=== PATIENT | female | born 1995 | race Caucasian/White ===

== ENCOUNTER 2023-06-23 21:44 | Emergency (ER) | payer MEDICAID ==
[~2023-06-23] VITALS: Ht 152.4 cm; Wt 59.0 kg
[2023-06-23 22:39] VITALS: O2SAT 98
[2023-06-24] MEDS ORDERED: IBUP-2029 MT (00:59)
[2023-06-24 02:35] VITALS: BP 118/72; PULSE 86; RESP 14; TEMP 98.2
== END 2023-06-24 02:36 | disposition home or self-care (01) ==
LOC: ER 21:44
DX: M79.662 Pain in left lower leg (principal); V89.2XXA Person injured in unspecified motor-vehicle accident, traffic, initial encounter; Y93.89 Activity, other specified; Y92.89 Other specified places as the place of occurrence of the external cause; Y99.8 Other external cause status
CPT/HCPCS: 81025; 93971; 99284

== ENCOUNTER 2023-08-23 11:30 | Emergency (ER) | payer MEDICAID, OTHER ==
[~2023-08-23] VITALS: Ht 152.4 cm; Wt 59.0 kg
[~2023-08-23 11:30] MED LIST: IBUP-2029 MT
[2023-08-23 11:38] VITALS: BP 123/83; PULSE 106; RESP 16; TEMP 98.5; O2SAT 100
[2023-08-23 12:10] LABS: BASOPHILS % 0.6 % (0.0-2.0); DIFFERENTIAL COMMENT 0; EOSINOPHILS % 0.5 % (0.0-5.0); HEMATOCRIT. 38.2 % (36.0-48.0); HEMOGLOBIN. 12.4 g/dL (12.0-16.0); LYMPHOCYTES % 19.7 % (20.0-50.0); MEAN CORPUSCULAR HEMOGLOBIN 25.5 pg (28.0-32.0); MEAN CORPUSCULAR HGB CONC 32.4 g/dL (31.0-37.0); MEAN CORPUSCULAR VOLUME 78.8 fL (81.0-99.0); MEAN PLATELET VOLUME 8.2 fl (7.4-10.4); MONOCYTES % 6.7 % (2.0-8.0); NEUTROPHILS % 72.5 % (40.0-76.0); PLATELET 392 x1000/uL (130-400); RED BLOOD CELL COUNT 4.86 mill/uL (4.2-5.4); RED CELL DISTRIBUTION WIDTH 13.9 % (11.6-14.6); WHITE BLOOD COUNT 9.6 x1000/uL (4.5-11.0)
[2023-08-23] MEDS ORDERED: ONDANSETRON 4MG ODT PO ONE (12:15)
[2023-08-23 12:20] LABS: CLARITY URINE CLOUDY (CLEAR); COLOR URINE YELLOW (YELLOW); GLUCOSE URINE 3+ (NEGATIVE); KETONES URINE 2+ (NEGATIVE); LEUKOCYTE ESTERASE URINE NEGATIVE (NEGATIVE); NITRITE URINE NEGATIVE (NEGATIVE); OCCULT BLOOD URINE NEGATIVE (NEGATIVE); PROTEIN URINE NEGATIVE (NEGATIVE); SPECIFIC GRAVITY URINE 1.041 (1.005-1.030); UROBILINOGEN URINE 0.2 E.U./dL (0.2-1.0)
[2023-08-23 12:44] LABS: CHLORIDE 104 mEq/L (98-107); INDEX HEMOLYSI 1 (1-3); INDEX ICTERIC 1 (1-4); INDEX LIPEMIC 1 (1-3); POTASSIUM 3.7 mEq/L (3.5-5.1); SODIUM 134 mEq/L (136-145)
[2023-08-23 12:51] LABS: ALANINE AMINOTRANSFERASE 17 IU/L (13-61); ASPARTATE AMINOTRANSFERASE 8 IU/L (15-37); BILIRUBIN TOTAL 0.7 mg/dL (0.1-1.0); CALCIUM 8.5 mg/dL (8.5-10.1); CARBON DIOXIDE 24 mEq/L (21-32); CREATININE 0.4 mg/dL (0.6-1.3); GLUCOSE 301 mg/dL (70-105); UREA NITROGEN BLOOD 9 mg/dL (7-21)
[2023-08-23 12:58] LABS: HCG SCREEN NEGATIVE
[2023-08-23 13:10] LABS: BACTERIA URINE 1+; RBC URINE 0-2 /hpf (0-2); SQUAMOUS EPITHELIAL CELL URINE 3+ /lpf (RARE/1+); YEAST URINE 1+
[2023-08-23] MEDS ORDERED: METR-167 MT (15:48)
[2023-08-23] MEDS ORDERED: METF-414 MT (15:50)
[2023-08-23] MEDS ORDERED: FLUC150T46 PO (16:05)
[2023-08-27 04:08] LABS: CHLAMYDIA TRACHOMATIS NAA Negative (Negative); NEISSERIA GONORRHOEAE NAA Negative (Negative)
== END 2023-08-23 22:09 | disposition home or self-care (01) ==
LOC: ER 11:39
DX: N76.0 Acute vaginitis (principal); D25.9 Leiomyoma of uterus, unspecified; R73.9 Hyperglycemia, unspecified
CPT/HCPCS: 87491; 87591; 80053; 81003; 81025; 84703; 83690; 85025; 87210; 36415; 76830; 76856; 99284; Q0162; Z7610

== ENCOUNTER 2024-07-11 20:00 | Emergency (ER) | payer MEDICAID, OTHER ==
[~2024-07-11] VITALS: Ht 152.4 cm; Wt 59.0 kg
[~2024-07-11 20:00] MED LIST changes: +FLUC150T46 PO; +METF-414 MT; +METR-167 MT
[2024-07-11 20:17] VITALS: O2SAT 98
[2024-07-11 21:22] LABS: CLARITY URINE CLEAR (CLEAR); COLOR URINE YELLOW (YELLOW); GLUCOSE URINE 3+ (NEGATIVE); KETONES URINE NEGATIVE (NEGATIVE); LEUKOCYTE ESTERASE URINE NEGATIVE (NEGATIVE); NITRITE URINE NEGATIVE (NEGATIVE); OCCULT BLOOD URINE 3+ (NEGATIVE); PH URINE 6.5 (4.5-8.0); PROTEIN URINE NEGATIVE (NEGATIVE); SPECIFIC GRAVITY URINE 1.047 (1.005-1.030)
[2024-07-11 21:39] LABS: SQUAMOUS EPITHELIAL CELL URINE 1+ /lpf (RARE/1+)
[2024-07-11 21:40] LABS: RBC URINE 25-50 /hpf (0-2); WBC URINE 0-2 /hpf (0-2)
[2024-07-11 21:41] LABS: BACTERIA URINE TRACE; YEAST URINE NONE SEEN
[2024-07-11 21:52] LABS: CHLORIDE 101 mEq/L (98-107); POTASSIUM 3.8 mEq/L (3.5-5.1); SODIUM 131 mEq/L (136-145)
[2024-07-11 21:53] LABS: CARBON DIOXIDE 23 mEq/L (21-32)
[2024-07-11 21:54] LABS: CALCIUM 9.4 mg/dL (8.7-10.4)
[2024-07-11 21:55] LABS: BASOPHILS % 0.5 % (0.0-2.0); DIFFERENTIAL COMMENT 0; EOSINOPHILS % 1.5 % (0.0-5.0); HEMATOCRIT. 36.9 % (36.0-48.0); LYMPHOCYTES % 22.9 % (20.0-50.0); MEAN CORPUSCULAR HEMOGLOBIN 25.9 pg (28.0-32.0); MEAN CORPUSCULAR HGB CONC 32.6 g/dL (31.0-37.0); MEAN CORPUSCULAR VOLUME 79.3 fL (81.0-99.0); MEAN PLATELET VOLUME 8.1 fl (7.4-10.4); MONOCYTES % 8.9 % (2.0-8.0); NEUTROPHILS % 66.2 % (40.0-76.0); PLATELET 395 x1000/uL (130-400); RED BLOOD CELL COUNT 4.65 mill/uL (4.2-5.4); RED CELL DISTRIBUTION WIDTH 14.6 % (11.6-14.6); WHITE BLOOD COUNT 9.4 x1000/uL (4.5-11.0)
[2024-07-11 21:58] LABS: CREATININE 0.6 mg/dL (0.6-1.0); UREA NITROGEN BLOOD 9 mg/dL (9-23)
[2024-07-11 22:04] LABS: INR 0.9; PROTHROMBIN TIME 10.3 sec (9.6-11.0)
[2024-07-11 22:05] LABS: GLUCOSE 463 mg/dL (70-105)
[2024-07-11] MEDS: SODIUM CHLORIDE 0.9% 1,000 ML IV ONE (22:15)
[2024-07-12] MEDS: SODIUM CHLORIDE 0.9% 1,000 ML IV ONE (00:34)
[2024-07-12] MEDS ORDERED: METF-414 MT (01:18)
[2024-07-12 01:40] VITALS: BP 126/88; PULSE 99; RESP 15; TEMP 36.72516; O2SAT 99
[2024-07-12] MEDS ORDERED: IOHEXOL-300 100 ML BOTTLE ONE (08:34)
== END 2024-07-12 02:02 | disposition home or self-care (01) ==
LOC: ER 20:02
DX: R73.9 Hyperglycemia, unspecified (principal); K92.1 Melena; Z79.899 Other long term (current) drug therapy
CPT/HCPCS: 99285; 74177; 96360; 80048; 81003; 81025; 85025; 85610; 36415; 82962; J7030; Q9967

== ENCOUNTER 2025-03-30 09:09 | Emergency (ER) | payer OTHER ==
[~2025-03-30] VITALS: Ht 149.9 cm; Wt 61.0 kg
[2025-03-30 09:13] VITALS: O2SAT 98
[2025-03-30 09:49] LABS: BASOPHILS % 0.6 % (0.0-2.0); EOSINOPHILS % 1.1 % (0.0-5.0); HEMATOCRIT. 41.8 % (36.0-48.0); LYMPHOCYTES % 16.1 % (20.0-50.0); MEAN CORPUSCULAR HEMOGLOBIN 27.8 pg (28.0-32.0); MEAN CORPUSCULAR HGB CONC 33.5 g/dL (31.0-37.0); MEAN CORPUSCULAR VOLUME 82.9 fL (81.0-99.0); MEAN PLATELET VOLUME 7.9 fl (7.4-10.4); MONOCYTES % 5.5 % (2.0-8.0); NEUTROPHILS % 76.7 % (40.0-76.0); PLATELET 378 x1000/uL (130-400); RED BLOOD CELL COUNT 5.04 mill/uL (4.2-5.4); RED CELL DISTRIBUTION WIDTH 14.1 % (11.6-14.6); WHITE BLOOD COUNT 11.3 x1000/uL (4.5-11.0)
[2025-03-30 09:54] LABS: CHLORIDE 98 mEq/L (98-107); POTASSIUM 3.9 mEq/L (3.5-5.1); SODIUM 133 mEq/L (136-145)
[2025-03-30 09:55] LABS: CALCIUM 9.3 mg/dL (8.7-10.4); CARBON DIOXIDE 24 mEq/L (21-32)
[2025-03-30 10:00] LABS: CREATININE 0.8 mg/dL (0.6-1.0); GLUCOSE 330 mg/dL (70-105); UREA NITROGEN BLOOD 9 mg/dL (9-23)
[2025-03-30 10:15] LABS: B-HCG QUANTITATIVE 3845 mIU/mL (<6)
[2025-03-30 11:28] VITALS: BP 120/75; PULSE 70; RESP 16; O2SAT 97
== END 2025-03-30 11:30 | disposition home or self-care (01) ==
LOC: ER 09:09
DX: O46.91 Antepartum hemorrhage, unspecified, first trimester (principal); Z3A.12 12 weeks gestation of pregnancy
CPT/HCPCS: 36415; 76801; 80048; 81025; 84702; 85025; 86850; 86900; 99284

== ENCOUNTER 2025-03-30 20:45 | Emergency (ER) | payer OTHER ==
[~2025-03-30] VITALS: Ht 149.9 cm; Wt 60.0 kg
[2025-03-30 20:48] VITALS: O2SAT 98
[2025-03-30 20:51] VITALS: BP 149/95; PULSE 91; RESP 18; TEMP 36.6; O2SAT 98
[2025-03-30 21:37] LABS: BASOPHILS % 0.6 % (0.0-2.0); EOSINOPHILS % 1.5 % (0.0-5.0); HEMATOCRIT. 39.9 % (36.0-48.0); HEMOGLOBIN. 13.2 g/dL (12.0-16.0); LYMPHOCYTES % 17.5 % (20.0-50.0); MEAN CORPUSCULAR HEMOGLOBIN 27.6 pg (28.0-32.0); MEAN CORPUSCULAR HGB CONC 33.1 g/dL (31.0-37.0); MEAN CORPUSCULAR VOLUME 83.3 fL (81.0-99.0); MEAN PLATELET VOLUME 7.8 fl (7.4-10.4); MONOCYTES % 7.8 % (2.0-8.0); NEUTROPHILS % 72.6 % (40.0-76.0); PLATELET 351 x1000/uL (130-400); RED BLOOD CELL COUNT 4.79 mill/uL (4.2-5.4); RED CELL DISTRIBUTION WIDTH 14.1 % (11.6-14.6); WHITE BLOOD COUNT 12.2 x1000/uL (4.5-11.0)
[2025-03-30 21:40] LABS: CHLORIDE 99 mEq/L (98-107); POTASSIUM 3.7 mEq/L (3.5-5.1); SODIUM 134 mEq/L (136-145)
[2025-03-30 21:41] LABS: CALCIUM 9.3 mg/dL (8.7-10.4); CARBON DIOXIDE 25 mEq/L (21-32)
[2025-03-30 21:46] LABS: CREATININE 0.7 mg/dL (0.6-1.0); GLUCOSE 398 mg/dL (70-105); UREA NITROGEN BLOOD 10 mg/dL (9-23)
[2025-03-30 21:55] LABS: HCG SCREEN POSITIVE
== END 2025-03-31 05:00 | disposition left against medical advice (07) ==
LOC: ER 20:45
DX: O03.9 Complete or unspecified spontaneous abortion without complication (principal); E11.65 Type 2 diabetes mellitus with hyperglycemia; D25.9 Leiomyoma of uterus, unspecified; N89.8 Other specified noninflammatory disorders of vagina; Z3A.01 Less than 8 weeks gestation of pregnancy; Z79.84 Long term (current) use of oral hypoglycemic drugs; Z79.899 Other long term (current) drug therapy
CPT/HCPCS: 36415; 76801; 80048; 84702; 84703; 85025; 86850; 86900; 99284